=== PATIENT | male | born 1950 | race Asian ===

== ENCOUNTER → 2019-01-25 | Outpatient (CLI) | payer MEDICARE ==
[~2019-01-25] MED LIST: AMOX-291 PO; ATOR10TA PO; ATOR10TA9 PO; CLAR-36 PO; GLUC-111 PO; MULT1TAB60 PO; OMEP-110 PO; OMEP20TA62 PO
[2019-01-25 15:23] LABS: BASOPHILS # (AUTO) 0.06 x10^3/uL (0-0.1); BASOPHILS % (AUTO) 1 % (0-1); EOSINOPHILS % (AUTO) 2 % (1-7); LYMPHOCYTES % (AUTO) 24 % (22-44); MD NO; MEAN CORPUSCULAR HEMOGLOBIN 30.8 pg (27.5-34.5); MEAN CORPUSCULAR HGB CONC 32.6 g/dL (33.2-36.2); MEAN CORPUSCULAR VOLUME 94.7 fL (81-97); MEAN PLATELET VOLUME 8.3 fL (7.4-10.4); MONOCYTES # (AUTO) 0.41 x10^3/uL (0.2-0.8); MONOCYTES % (AUTO) 6 % (2-9); NEUTROPHILS # (AUTO) 4.82 x10^3/uL (1.8-6.8); NEUTROPHILS % (AUTO) 68 % (42-75); PLATELET COUNT 282 x10^3/uL (130-400); RED BLOOD COUNT 4.34 x10^6/uL (4.38-5.82); RED CELL DISTRIBUTION WIDTH 12.9 % (9.4-14.8)
[2019-01-25 15:26] LABS: ALANINE AMINOTRANSFERASE 29 U/L (12-78); ALBUMIN 3.5 g/dL (3.4-5.0); ANION GAP 5 mmol/L (5-15); CALCIUM 8.3 mg/dL (8.5-10.1); CHLORIDE 107 mmol/L (98-107)
[2019-01-25 15:28] LABS: ALKALINE PHOSPHATASE 70 U/L (45-117); TOTAL PROTEIN 7.5 g/dL (6.4-8.2)
== END | disposition home or self-care (01) ==
LOC: STAR 14:06
PROVIDERS: ATTEND Student in an Organized Health Care Education/Training Program
DX: Z01.818 Encounter for other preprocedural examination (principal); Z87.891 Personal history of nicotine dependence; Z82.49 Family history of ischemic heart disease and other diseases of the circulatory system; Z80.9 Family history of malignant neoplasm, unspecified
CPT/HCPCS: 36415; 80053; 85025; 93005

== ENCOUNTER 2019-01-31 10:57 | Inpatient (IN) | payer MEDICARE ==
[~2019-01-31] VITALS: Ht 167.6 cm; Wt 72.6 kg
[~2019-01-31 10:57] MED LIST changes: +BUPIVACAINE/EPI 0.5% 1:200K ONE
[2019-01-31] MEDS ORDERED: LACTATED RINGERS 1,000 ML IV SCH (11:41)
[2019-01-31] MEDS ORDERED: FENTANYL PF 250 MCG/5ML ONE ×2 (11:48→13:40)
[2019-01-31] MEDS ORDERED: CEFOTETAN PMX 2GM/50ML 50 ML ONE (11:50)
[2019-01-31] MEDS ORDERED: ROCURONIUM 10MG/ML,5ML ONE (11:51)
[2019-01-31] MEDS ORDERED: PROPOFOL 10 MG/ML, 20ML ONE (11:51)
[2019-01-31] MEDS ORDERED: GLYCOPYRROLATE 0.2MG/1ML, 5ML ONE (11:51)
[2019-01-31] MEDS ORDERED: NEOSTIGMINE 1 MG/ML, 10ML ONE (11:51)
[2019-01-31] MEDS ORDERED: PHENYLEPHRINE 10 MG/ML ONE (12:58)
[2019-01-31] MEDS ORDERED: DEXAMETHASONE 4 MG/ML, 1ML ONE (12:58)
[2019-01-31] MEDS ORDERED: MORPHINE SULFATE 4 MG/ML, 1ML IVPush PRN (13:00)
[2019-01-31] MEDS ORDERED: ACETAMINOPHEN 325 MG TABLET PO PRN (13:00)
[2019-01-31] MEDS ORDERED: LABETALOL 5MG/ML, 20ML IV PRN (13:00)
[2019-01-31] MEDS ORDERED: HALOPERIDOL 5 MG/ML IV PRN (13:00)
[2019-01-31] MEDS ORDERED: MEPERIDINE/PF 25MG/ML,1ML IVPush PRN (13:00)
[2019-01-31] MEDS ORDERED: HYDROmorphone 2 MG/ML, 1ML IVPush PRN (13:00)
[2019-01-31] MEDS ORDERED: PROMETHAZINE 25 MG/ML, 1ML IV PRN (13:00)
[2019-01-31] MEDS ORDERED: hydrALAzine 20 MG/ML, 1ML IV PRN (13:00)
[2019-01-31] MEDS ORDERED: FENTANYL PF 100 MCG/2ML IV PRN (13:00)
[2019-01-31] MEDS ORDERED: OXYcodone 5 MG/5 ML ORAL.SOL UDC PO PRN (13:00)
[2019-01-31] MEDS ORDERED: FENTANYL PF 100 MCG/2ML ONE (15:43)
[2019-01-31] MEDS ORDERED: ROPIvacaine/PF 0.2%, 20 ML ONE ×3 (15:50→15:53)
[2019-01-31] MEDS ORDERED: ACETAMINOPHEN 325 MG TABLET ONE (17:34)
[2019-01-31] MEDS ORDERED: DIPHENHYDRAMINE 25 MG CAPSULE PO PRN (18:30)
[2019-01-31] MEDS ORDERED: ONDANSETRON 2MG/ML, 2ML IV PRN (18:30)
[2019-01-31] MEDS ORDERED: LACTATED RINGERS 500 ML IVBOLUS PRN (18:30)
[2019-01-31] MEDS ORDERED: DIPHENHYDRAMINE 50 MG/ML, 1ML IV PRN (18:30)
[2019-01-31] MEDS ORDERED: HYDROmorphone 2 MG/ML, 1ML IV PRN (19:00)
[2019-01-31] MEDS ORDERED: OXYcodone IR 5MG TABLET PO PRN (19:00)
[2019-01-31] MEDS: POTASSIUM CHLORIDE 20 MEQ in LACTATED RINGERS 1,000 ML IV SCH (19:46)
[2019-01-31] MEDS: ACETAMINOPHEN 100 ML IVPB SCH (19:46)
[2019-01-31 19:55] VITALS: BP 144/78
[2019-01-31] MEDS: OXYcodone 5 MG/5 ML ORAL.SOL UDC PO PRN (19:55)
[2019-02-01 00:45] VITALS: BP 95/55
[2019-02-01] MEDS: OXYcodone 5 MG/5 ML ORAL.SOL UDC PO PRN ×3 (01:36→10:16)
[2019-02-01 04:35] VITALS: BP 119/71
[2019-02-01 05:12] LABS: BASOPHILS # (AUTO) 0.01 x10^3/uL (0-0.1); BASOPHILS % (AUTO) 0 % (0-1); EOSINOPHILS % (AUTO) 0 % (1-7); LYMPHOCYTES # (AUTO) 1.03 x10^3/uL (1-3.4); LYMPHOCYTES % (AUTO) 14 % (22-44); MD NO; MEAN CORPUSCULAR HEMOGLOBIN 31.8 pg (27.5-34.5); MEAN CORPUSCULAR HGB CONC 33.2 g/dL (33.2-36.2); MEAN CORPUSCULAR VOLUME 95.6 fL (81-97); MEAN PLATELET VOLUME 7.7 fL (7.4-10.4); MONOCYTES # (AUTO) 0.31 x10^3/uL (0.2-0.8); MONOCYTES % (AUTO) 4 % (2-9); NEUTROPHILS # (AUTO) 5.89 x10^3/uL (1.8-6.8); NEUTROPHILS % (AUTO) 81 % (42-75); PLATELET COUNT 312 x10^3/uL (130-400); RED BLOOD COUNT 3.81 x10^6/uL (4.38-5.82); RED CELL DISTRIBUTION WIDTH 13.2 % (9.4-14.8)
[2019-02-01 05:21] LABS: ALANINE AMINOTRANSFERASE 41 U/L (12-78); ALBUMIN 2.9 g/dL (3.4-5.0); ANION GAP 7 mmol/L (5-15); CALCIUM 7.8 mg/dL (8.5-10.1); CHLORIDE 106 mmol/L (98-107); CREATININE 0.78 mg/dL (0.7-1.3)
[2019-02-01 05:24] LABS: ALKALINE PHOSPHATASE 63 U/L (45-117); BILIRUBIN,TOTAL 0.8 mg/dL (0.2-1.0); TOTAL PROTEIN 6.6 g/dL (6.4-8.2)
[2019-02-01] MEDS: ACETAMINOPHEN 100 ML IVPB SCH ×3 (05:45→18:26)
[2019-02-01] MEDS: POTASSIUM CHLORIDE 20 MEQ in LACTATED RINGERS 1,000 ML IV SCH ×2 (06:26→18:26)
[2019-02-01 07:50] VITALS: BP 116/68
[2019-02-01] MEDS: ENOXAPARIN 40 MG/0.4 ML SQ SCH (09:07)
[2019-02-01] MEDS ORDERED: OMNIPAQUE 350 MG/ML, 150 ML BOTTLE ONE (11:53)
[2019-02-01 13:57] VITALS: BP 116/68
[2019-02-01 19:40] VITALS: BP 100/62
[2019-02-02 02:06] VITALS: BP 102/62
[2019-02-02] MEDS: KETOROLAC 30 MG/1 ML IV SCH ×2 (03:25→09:54)
[2019-02-02] MEDS: POTASSIUM CHLORIDE 20 MEQ in LACTATED RINGERS 1,000 ML IV SCH (04:18)
[2019-02-02] MEDS ORDERED: OMEP20TA62 PO (07:07)
[2019-02-02 09:18] VITALS: BP 136/64
[2019-02-02] MEDS ORDERED: OXYC5CAP2 PO (09:30)
[2019-02-02] MEDS ORDERED: ACET-2065 PO (09:30)
[2019-02-02] MEDS ORDERED: ONDA4TAB7 PO (09:31)
[2019-02-02] MEDS ORDERED: DOCU-131 PO (09:31)
[2019-02-02] MEDS: ENOXAPARIN 40 MG/0.4 ML SQ SCH (09:54)
== END 2019-02-02 12:02 | disposition home or self-care (01) | DRG 328 ==
LOC: OUT 10:57 → 4NE 18:10 → OUT 18:15 → 4NE 18:15 → DCLOUNGE 02-02 11:45
PROVIDERS: ADMIT Student in an Organized Health Care Education/Training Program; ATTEND Student in an Organized Health Care Education/Training Program
PROC: 07BD4ZZ Excision of Aortic Lymphatic, Percutaneous Endoscopic Approach (ICD-10-PCS; 2019-01-31)
PROC: 0DB64ZZ Excision of Stomach, Percutaneous Endoscopic Approach (ICD-10-PCS; 2019-01-31)
PROC: 3E0T3BZ Introduction of Anesthetic Agent into Peripheral Nerves and Plexi, Percutaneous Approach (ICD-10-PCS; 2019-01-31)
PROC: 0DT Gastrointestinal System, Resection (ICD-10-PCS; 2019-01-31)
PROC: 0D164ZA Bypass Stomach to Jejunum, Percutaneous Endoscopic Approach (ICD-10-PCS; principal; 2019-01-31 13:00)
DX: C16.9 Malignant neoplasm of stomach, unspecified (principal); E78.5 Hyperlipidemia, unspecified; K21.9 Gastro-esophageal reflux disease without esophagitis; E78.00 Pure hypercholesterolemia, unspecified; Z79.899 Other long term (current) drug therapy
CPT/HCPCS: 36415; 74247; 80053; 85025; 88307; G0378; J0131; J1100; J1650; J1885; J2704; J2710; J2795; J3010; J3480; Q9967; J2370; J3490; J7120